=== PATIENT | female | born 1990 | race Caucasian/White ===

== ENCOUNTER 2016-05-02 11:59 | Emergency (ER) | payer OTHER ==
[~2016-05-02] VITALS: Ht 170.2 cm; Wt 173.0 kg
[~2016-05-02 11:59] MED LIST: ALBUTEROL17 G1 IH; AMOXICILLIN; PREDNISONE20 MG PO; PROAIR HFA8.5 GM IH
[2016-05-02 14:36] LABS: INFLUENZA A VIRAL ANTIGEN NEGATIVE; INFLUENZA B VIRAL ANTIGEN POSITIVE
[2016-05-02 15:38] VITALS: BP 123/70
== END 2016-05-02 15:40 | disposition home or self-care (01) ==
LOC: RME 11:59 → EME 11:59 → RME 15:40
PROVIDERS: Physician Assistant
DX: J10.1 Influenza due to other identified influenza virus with other respiratory manifestations (principal); H92.03 Otalgia, bilateral; J45.909 Unspecified asthma, uncomplicated; F17.200 Nicotine dependence, unspecified, uncomplicated
CPT/HCPCS: 71020; 87502; 87651 90; 99281; 99284

== ENCOUNTER 2016-11-19 12:11 | Emergency (ER) | payer OTHER ==
[~2016-11-19] VITALS: Ht 170.2 cm; Wt 183.3 kg
[2016-11-19] MEDS ORDERED: AUGMENTIN875 MG PO ×2 (13:33→14:04)
[2016-11-19 14:24] VITALS: BP 129/90
== END 2016-11-19 14:25 | disposition home or self-care (01) ==
LOC: EME 12:11
PROC: 3E0234Z Introduction of Serum, Toxoid and Vaccine into Muscle, Percutaneous Approach (ICD-10-PCS; principal; 2016-11-19)
DX: S60.572A Other superficial bite of hand of left hand, initial encounter (principal); S60.872A Other superficial bite of left wrist, initial encounter; S30.871A Other superficial bite of abdominal wall, initial encounter; Y04.1XXA Assault by human bite, initial encounter; Y07.59 Other non-family member, perpetrator of maltreatment and neglect; Y99.0 Civilian activity done for income or pay; Z23 Encounter for immunization; J45.909 Unspecified asthma, uncomplicated; F17.200 Nicotine dependence, unspecified, uncomplicated
CPT/HCPCS: 73110; 73130; 99281; 99283